=== PATIENT | female | born 1995 | race Caucasian/White ===

== ENCOUNTER 2017-06-10 16:56 | Emergency (ER) | payer BC, OTHER ==
--- NOTE | 2017-06-10 19:06 | RAD ---
PORTABLE CHEST: 06/10/17 HISTORY: Cough and congestion. Pleuritic chest pain. Heart size and mediastinum are within normal limits. The lungs are clear of infiltrates. There are no significant bony findings. IMPRESSION: No active intrathoracic disease. POS: [id number]
== END 2017-06-10 18:56 | disposition home or self-care (01) ==
LOC: ERS 16:56
DX: J06.9 Acute upper respiratory infection, unspecified (principal)
CPT/HCPCS: 71045